=== PATIENT | female | born 1980 | race Two or more races ===

== ENCOUNTER 2023-09-29 12:04 | Emergency (ER) | payer OTHER ==
[~2023-09-29] VITALS: Ht 167.6 cm; Wt 100.0 kg
[2023-09-29 15:10] VITALS: BP 138/86; PULSE 68; RESP 18; TEMP 98; O2SAT 100
[2023-09-29] MEDS ORDERED: NAP500T PO (16:24)
== END 2023-09-29 16:32 | disposition home or self-care (01) ==
LOC: ER 12:04
DX: S83.8X2A Sprain of other specified parts of left knee, initial encounter (principal); Z79.899 Other long term (current) drug therapy; X58.XXXA Exposure to other specified factors, initial encounter; Y93.89 Activity, other specified; Y92.89 Other specified places as the place of occurrence of the external cause; Y99.8 Other external cause status
CPT/HCPCS: 73562